=== PATIENT | female | born 1985 | race African-American/Black ===

== ENCOUNTER 2020-05-10 00:51 | Emergency (ER) | payer MEDICAID ==
[~2020-05-10] VITALS: Ht 167.6 cm; Wt 91.0 kg
[2020-05-10] MEDS ORDERED: HYDROCODONE/ACETAMINOPHEN 5/325MG TABLET PO ONE (01:45)
[2020-05-10 01:59] VITALS: BP 131/71
[2020-05-10 03:08] LABS: BASOPHILS % 0.1 % (0.0-2.0); EOSINOPHILS % 0.5 % (0.0-5.0); HEMATOCRIT. 39.7 % (36.0-48.0); HEMOGLOBIN. 12.9 g/dL (12.0-16.0); LYMPHOCYTES % 33.6 % (20.0-50.0); MEAN CORPUSCULAR HEMOGLOBIN 26.4 pg (28.0-32.0); MEAN CORPUSCULAR VOLUME 81.2 fL (81.0-99.0); NEUTROPHILS % 58.8 % (40.0-76.0); PLATELET 212 x1000/uL (130-400); RED BLOOD CELL COUNT 4.89 mill/uL (4.2-5.4); RED CELL DISTRIBUTION WIDTH 16.3 % (11.6-14.6)
[2020-05-10 03:11] LABS: CHLORIDE 110 mEq/L (98-107)
[2020-05-10 03:26] LABS: HCG SCREEN NEGATIVE
== END 2020-05-10 04:45 | disposition home or self-care (01) ==
LOC: ER 00:51
DX: M94.0 Chondrocostal junction syndrome [Tietze] (principal); F17.200 Nicotine dependence, unspecified, uncomplicated; Z98.890 Other specified postprocedural states
CPT/HCPCS: 36415; 71045; 80053; 81025; 84484; 84703; 85025; 93005; 99285

== ENCOUNTER 2021-05-05 23:30 | Emergency (ER) | payer MEDICAID, OTHER ==
[~2021-05-05] VITALS: Ht 170.2 cm; Wt 73.0 kg
[2021-05-05 23:35] VITALS: BP 125/82
== END 2021-05-06 00:24 | disposition left against medical advice (07) ==
LOC: ER 23:30
DX: M25.571 Pain in right ankle and joints of right foot (principal); M79.89 Other specified soft tissue disorders; Z91.81 History of falling
CPT/HCPCS: 99283

== ENCOUNTER 2021-05-13 04:36 | Emergency (ER) | payer OTHER ==
[~2021-05-13] VITALS: Ht 167.6 cm; Wt 73.5 kg
[2021-05-13 04:54] VITALS: BP 126/87
[2021-05-13] MEDS ORDERED: ACETAMINOPHEN 325MG TABLET PO ONE (06:30)
== END 2021-05-13 07:17 | disposition home or self-care (01) ==
LOC: ER 04:36
DX: M25.571 Pain in right ankle and joints of right foot (principal)
CPT/HCPCS: 73610; 99283